=== PATIENT | male | born 1950 | race Caucasian/White ===

== ENCOUNTER 2023-12-28 06:43 | Day surgery (SDC) | payer MEDICARE, OTHER, SELFPAY ==
[2023-12-28] VITALS (17 sets, daily range): BP systolic 122–187; BP diastolic 64–129; BMI 29.0
[2023-12-28 07:25] LABS: Glucose - Point of Care 228 mg/dl (70-99)
[2023-12-28] MEDS: NSS 308 ML IV (08:16)
[2023-12-28] MEDS: LOW STRENGTH ASPIRIN 81 MG PO (08:17)
[2023-12-28 09:43] LABS: ACT-LR - POC 297 Seconds (116-155)
[2023-12-28 10:44] LABS: Glucose - Point of Care 203 mg/dl (70-99)
--- NOTE | 2023-12-28 14:19 | ITS.CL.CATH ---
[facility] - Catheterization
Cardiac Catheterization
Procedure Report:
CARDIAC CATHETERIZATION REPORT
Date of Procedure: 12/28/2023
Referring: Jeremy Sheikh DO
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
HEMODYNAMIC DATA
AO: 172/79
LV: 172/20
LEFT VENTRICULOGRAPHY: Normal left ventricular wall motion with EF 61%
CORONARY ANGIOGRAPHY
Dominance: Right
Left Main: Normal
LAD: Severely calcified with 60% ostial and 90% proximal stenoses. The LAD is occluded distal to the takeoff of the first septal tunnel miner and first diagonal branch. The first diagonal branch is a medium sized vessel with 95% ostial/proximal
stenosis. The mid and distal LAD fill via a patent SAMUELS graft which touches down in the mid LAD with excellent distal runoff and only mild apical disease distal to the touchdown site. There is backfilling through highly calcified mid LAD to supply
several septal perforators
Circumflex: The circumflex gives rise to a small OM1 and a large branching OM 2 before continuing distally into the AV groove to supply a large branching left posterolateral and a medium size left PDA. The large OM 2 has focal calcific 90% mid
stenosis. The left posterolateral branch and left PDA fills antegrade and via a patent vein graft to the large left posterolateral branch.
RCA: Nondominant vessel occluded in the midportion unchanged from 2019.
Bypass grafts:
1. The SAMUELS to LAD graft is widely patent with excellent runoff
2. The SVG-LPL is widely patent with excellent runoff
Angioplasty: At the conclusion of the diagnostic study, we proceeded with PCI of the large OM 2 which had 90% mid stenosis. Heparin was used for anticoagulation and Plavix 600 mg was administered at the procedure conclusion. A 6 [place] EBU 3.75
guide was advanced left coronary ostium and provided excellent backup support. A BMW wire was successfully passed into the distal aspect of OM 2. A 2.0 x 8 trek was used to predilate the lesion to 14 marquita. We then attempted to pass a 2.5 x 12 mm
Xience [place] DIPTI but this stent would not cross the lesion. The stent was removed undeployed. A 2.25 x 8 NC trek was then used to predilate to 12 marquita. Inspection of the Xience stent demonstrated a proximal stent strut to be displaced and the
stent was discarded. A 2.5 x 18 [place] DIPTI was advanced to cover the entire diseased segment and deployed at 14 marquita. This was followed by postdilatation with a 2.75 NC trek to 17 marquita. The final angiographic result was outstanding. There
were no procedural complications.
Closure Device: 6 [place] Angio-Seal RFA
Radiation (mGy): 1202
DAP (cm2.Gy): 79.1
Fluoroscopy time: 11.2-minutes
CONCLUSIONS
1: Systemic hypertension
2: Elevated LVEDP
3. Normal left ventricular wall motion with EF 61%
4. Severe [place] triple-vessel CAD as described with patent SAMUELS-LAD and SVG-LPL bypass grafts
5. Successful stenting of 90% stenosis in midportion of large OM 2 using 2.5 x 18 [place] DIPTI postdilated with 2.75 mm noncompliant balloon
6. Recommend dual antiplatelet therapy for 6-12 months and lifelong aspirin
Copy to: Jeremy Sheikh DO, [facility] ([place])
Emerson Lima MD, [facility], [facility]
--- NOTE | 2023-12-28 14:31 | W.PN.UPDATE ---
Update Note
Progress Note Update
73 yo WM s/p PCI OM2 x1 DIPTI (same day) He feels good, no cp, sob, austen diet, voiding, amb w/o dizziness, EKG SB1deg AVB with occ PVC's, Fem site c/d/i no HT closed with Angioseal. He will be on DAPT ASA/Plavix. He will stop celebrex while on DAPT.
Cardiac rehab c/s. Activity restrictions reviewed. He will f/u Dr. Sheikh in 2-4 weeks. He is for d/c home after 3pm.
== END 2023-12-28 15:13 | disposition home or self-care (01) ==
LOC: CATH 06:43
PROVIDERS: ATTENDING PHYSICIAN Internal Medicine Cardiovascular Disease; FAMILY PHYSICIAN Nurse Practitioner Family; OTHER PHYSICIAN Internal Medicine Cardiovascular Disease
DX: I25.119 Atherosclerotic heart disease of native coronary artery with unspecified angina pectoris (principal); Z95.1 Presence of aortocoronary bypass graft; I11.9 Hypertensive heart disease without heart failure; Z79.02 Long term (current) use of antithrombotics/antiplatelets; Z79.82 Long term (current) use of aspirin; I48.91 Unspecified atrial fibrillation; E11.9 Type 2 diabetes mellitus without complications; I44.0 Atrioventricular block, first degree
CPT/HCPCS: 82962; 85347; 93005; 93459; C1725; C1769; C1874; C9600; Q9967

== ENCOUNTER 2024-02-02 13:19 | Outpatient (RCR) | payer MEDICARE, OTHER, SELFPAY ==
[2024-01-28 11:31] LABS: Glucose - Point of Care 182 mg/dl (70-99)
[2024-01-28 12:17] LABS: Glucose - Point of Care 120 mg/dl (70-99)
[2024-02-02 13:03] LABS: Glucose - Point of Care 96 mg/dl (70-99)
[2024-02-02 13:15] LABS: Glucose - Point of Care 97 mg/dl (70-99)
[2024-02-02 13:32] LABS: Glucose - Point of Care 121 mg/dl (70-99)
[2024-02-02 14:04] LABS: Glucose - Point of Care 99 mg/dl (70-99)
[2024-02-02 14:26] LABS: Glucose - Point of Care 120 mg/dl (70-99)
== END 2024-02-02 23:59 | disposition home or self-care (01) ==
LOC: CRHB 13:19
PROVIDERS: ATTENDING PHYSICIAN Internal Medicine Cardiovascular Disease; REFERRING PHYSICIAN Internal Medicine Cardiovascular Disease
DX: I25.10 Atherosclerotic heart disease of native coronary artery without angina pectoris (principal); Z95.5 Presence of coronary angioplasty implant and graft
CPT/HCPCS: 82962; G0422; G0423